=== PATIENT | female | born 1990 | race Two or more races ===

== ENCOUNTER 2017-05-09 23:17 | Observation (INO) | payer SELFPAY ==
[2017-05-09] MEDS ORDERED: IV RINGERS,LACTATED 1000ML 1,000 ML IV SCH (23:30)
[2017-05-09 23:38] LABS: BILIRUBIN,URINE NEGATIVE (NEG); GLUCOSE,URINE NEGATIVE (NEG); NITRITE,URINE NEGATIVE (NEG); PH,URINE 7.5; PROTEIN,URINE NEGATIVE (NEG-TRACE); UROBILINOGEN,URINE 0.2 mg/dL (0.2 mg/dL)
[2017-05-09 23:42] LABS: BACTERIA,URINE MODERATE /HPF (0-FEW); SQUAMOUS EPITHELIAL CELL,UR MANY /LPF; WBC,URINE 20-40 /HPF (0-4)
[2017-05-09 23:45] LABS: BARBITURATES NEG (NEG); BENZODIAZEPINES NEG (NEG); CANNABINOIDS NEG (NEG); COCAINE NEG (NEG); METHADONE NEG (NEG); OPIATES NEG (NEG); PHENCYCLIDINE NEG (NEG)
[2017-05-10] MEDS ORDERED: hydrOXYzine PAMOATE 25 MG CAPSULE PO ONE (00:15)
[2017-05-10 00:48] LABS: BASO % 0 % (0-3); EOS % 2 % (0-3); HEMATOCRIT 35.8 % (36.0-47.0); HEMOGLOBIN 12.9 g/dL (12.0-15.5); LYMPH # 1.9 x10^3/uL (1.0-4.8); LYMPH % 17 % (24-48); MEAN CORPUSCULAR HEMOGLOBIN 37 pg (25-35); MEAN CORPUSCULAR HGB CONC 36 g/dL (31-37); MEAN CORPUSCULAR VOLUME 101 fL (79-100); MONO % 10 % (0-9); NEUT % 70 % (31-73); PLATELET COUNT 167 x10^3/uL (140-400); RED BLOOD COUNT 3.53 x10^6/uL (3.50-5.40); RED CELL DISTRIBUTION WIDTH 12.3 % (11.5-14.5); WHITE BLOOD COUNT 10.8 x10^3/uL (4.0-11.0)
[2017-05-10 14:28] LABS: HIV ANTIBODY Non Reactive (Non Reactive)
[2017-05-11 04:20] LABS: RPR REFLEX Non Reactive (Non Reactive)
== END 2017-05-10 02:00 | disposition home or self-care (01) ==
LOC: 3 SO LND 23:17
DX: O62.9 Abnormality of forces of labor, unspecified (principal); O26.893 Other specified pregnancy related conditions, third trimester; M54.9 Dorsalgia, unspecified; O46.93 Antepartum hemorrhage, unspecified, third trimester; Z3A.39 39 weeks gestation of pregnancy
CPT/HCPCS: 36415; 80307; 81001; 85025; 86593; 86701; 86702; 86703; 86762; 86850; 86900; 86901; 87070; 87086; 87340; 87341; 87535; 96360; 96361; G0378; G0379; Q0177; J7120; G0479

== ENCOUNTER 2017-05-10 10:33 | Inpatient (IN) | payer SELFPAY ==
[~2017-05-10] VITALS: Ht 162.6 cm; Wt 74.4 kg
[2017-05-10] MEDS ORDERED: IV RINGERS,LACTATED 1000ML 1,000 ML IV SCH ×2 (11:03→11:18)
[2017-05-10] MEDS ORDERED: TERBUTALINE 1 MG/ML VIAL. SQ PRN (11:15)
[2017-05-10] MEDS ORDERED: fentaNYL PF VIAL 100 MCG/2 ML VIAL IV PRN (11:15)
[2017-05-10] MEDS ORDERED: LIDOCAINE 1% PF 30 ML VIAL. INJ PRN (11:15)
[2017-05-10] MEDS ORDERED: 0.9 % SODIUM CHLORIDE 10 ML DISP.SYRIN. IV PRN (11:15)
[2017-05-10] MEDS ORDERED: OXYTOCIN 30 UNIT/500 ML PREMIX 500 ML IV PRN (11:15)
[2017-05-10] MEDS ORDERED: ROPIVacaine 0.2% IN 0.9%NACL PF 40 MG/20 ML DISP.SYRIN. ONE (11:19)
[2017-05-10] MEDS ORDERED: ePHEDrine PF IN SALINE 50 MG/5 ML DISP.SYRIN IV ONE ×2 (11:19→11:30)
[2017-05-10] MEDS ORDERED: L&D EPIDURAL CASSETTE 100 ML EP ONE (11:19)
[2017-05-10 11:30] VITALS: BP 95/54
[2017-05-10] MEDS ORDERED: fentaNYL PF VIAL 100 MCG/2 ML VIAL EPI PRN (11:30)
[2017-05-10] MEDS ORDERED: L&D EPIDURAL CASSETTE 100 ML EP PRN (11:30)
[2017-05-10] MEDS ORDERED: ROPIVacaine 0.2% IN 0.9%NACL PF 40 MG/20 ML DISP.SYRIN. EPI PRN (11:30)
[2017-05-10] MEDS ORDERED: BUPIVACAINE MPF 0.25% 10 ML VIAL. EPI PRN (11:30)
[2017-05-10] MEDS ORDERED: ePHEDrine PF IN SALINE 50 MG/5 ML DISP.SYRIN IV PRN (11:30)
[2017-05-10] MEDS ORDERED: NALOXONE 0.4 MG/ML VIAL. IV PRN (11:30)
[2017-05-10] MEDS ORDERED: OXYTOCIN 30 UNIT/500 ML PREMIX 500 ML IV ONE (12:00)
--- NOTE | 2017-05-10 12:31 | HP ---
ADMIT DATE: 05/10/2017 REASON FOR VISIT: Labor. HISTORY OF PRESENT ILLNESS: This is a 26-year-old female, 2, para 1-0-0-1, estimated gestational age 39 and 4/7 weeks' gestation by an 18-week ultrasound with EDC of 05/13/2017. The patient had been seen in Labor and Delivery late last evening, was observed, had a category 1 tracing, demonstrated no cervical change at 2 cm. Contractions abated with IV fluids. She now re-presents with contractions every 4 minutes, 4-5 cm dilatation. heart tracing is category 1 with a baseline of 125. Tocometer confirms contractions approximately every 5 minutes. She has been admitted for active labor management. She denies any vaginal bleeding, leakage of fluid. Desires a labor epidural and she is status post placement by Anesthesia. The patient received her care at the [facility]. It was remarkable for late onset, a total of 7 visits with her last visit being 03/13/2017. Review of her labs that are on the records shows blood type is A, Rh positive, AB screen none, hepatitis B surface is negative, RPR nonreactive. Gonorrhea and chlamydia cultures negative, HIV negative, rubella immune, GBS status unknown. It has been performed last evening with results pending as well. Unable to locate a 1-hour glucose, however, the patient reports that it was within normal limits. PAST OBSTETRICAL HISTORY: Previous vaginal delivery, 6 pound 8 ounce female infant at 40 weeks gestation on 11/28/2016. She had a labor epidural with this delivery. She denied any problems with that delivery or problems with the care. PAST MEDICAL AND PAST SURGICAL HISTORY: Unremarkable. PAST GYNECOLOGIC HISTORY: She is current with her Pap smear. Denies any history of atypical Paps. Denies any history of cervical procedures. Denies any history of sexually transmitted diseases. SOCIAL HISTORY: . Denies tobacco or alcohol use during the course of . FAMILY HISTORY: No known defects on her side of the family or the father of the baby side of family. ALLERGIES: No known drug allergies. MEDICATIONS: vitamins. PHYSICAL EXAMINATION: VITAL SIGNS: Per nursing flow sheet. GENERAL: Alert and oriented, in no acute distress, comfortable with her labor epidural. LUNGS: Without wheeze, rhonchi or crackles. ABDOMEN: Gravid. Fundal height consistent with gestational age. Estimated weight by Mike maneuver is 7-1/2 pounds. heart tracing 125, category 1. Tocometer, uterine contractions q.5 minutes. PELVIS: Vaginal examination, normal female without lesion or ulceration. Cervix is 5 cm, 90% effaced. Amniotomy performed with the Amniohook with clear fluid noted. Cephalic presentation, 0 station. Pelvis appears adequate for trial of labor. EXTREMITIES: Nontender. IMPRESSION: Intrauterine 39 and 4/7 weeks' gestation, active labor. PLAN: The patient is comfortable through labor epidural. Consent signed on the chart for a trial of labor. We will place the patient on a normal labor curve and optimistic she will undergo a term assisted vaginal delivery. NORA ROBERTSON DO DR: JJ/ira JOB#: [id number] / [id number]
[2017-05-10] MEDS: IBUPROFEN 800 MG TABLET. PO PRN ×2 (16:30→22:54)
[2017-05-10 17:16] VITALS: BP 95/57
--- NOTE | 2017-05-10 19:48 | LDN ---
DATE OF DELIVERY: 05/10/2017 TIME: 1437. PREOPERATIVE DIAGNOSIS: Intrauterine at 39 and 4/7-weeks' gestation, limited care. POST DELIVERY DIAGNOSIS: Intrauterine at 39 and 4/7-weeks' gestation, limited care, nuchal cord x 1. SURGEON: Nora Melendez DO. PROCEDURE: Amniotomy, term assisted vaginal delivery, repair of a second-degree perineal laceration. OPERATIVE DESCRIPTION: The patient was status post amniotomy at 11:46 a.m. clear fluid. She was started on oxytocin, progressed to complete. She was comfortable through labor epidural. The patient was placed in the obstetrical stirrups. Quevedo catheter was removed by nursing staff. The patient was prepped and draped in usual sterile fashion for vaginal delivery. The head was delivered atraumatically in the direct occipital anterior position. Nuchal cord x 1 was noted was easily reduced. Light gentle downward pressure was applied to the head and the anterior and posterior shoulder delivered in the usual fashion without resistance as was the coming torso. Infant was held below the peritoneum. The oral and nasopharynx were bulb suctioned. He is noted to be a liveborn male infant. was then placed on the mother's abdomen. The cord was doubly clamped with Tanya clamps, transected with the Candelaria scissors. Cord blood was drawn. The uterus was delivered by gentle traction. Recinos presentation normal, appearance normal. Three-vessel cord noted. Oxytocin was infused. Uterus was firm to palpation. Bleeding was moderate. Inspection of the vaginal mucosa and peritoneum revealed a second-degree perineal laceration. This was repaired with 2-0 chromic in the usual fashion with excellent hemostasis and cosmesis obtained. All sponge, instrument, needle counts correct x 3 per nurse staff in attendance. The patient tolerated procedure well. ANESTHESIA: Epidural. ESTIMATED BLOOD LOSS: Less than 500 mL. COMPLICATIONS: None apparent. DISPOSITION: Mother stable in the LDR, infant to the full term nursery. Infant's weight assessed by nursing staff 3435 grams with Apgars assigned by nursing staff of 8 and 9. NORA MELENDEZ DO DR: JJ/ira JOB#: [id number] / [id number]
[2017-05-10 22:52] VITALS: BP 92/56
[2017-05-11 04:00] VITALS: BP 94/52
[2017-05-11] MEDS: IBUPROFEN 800 MG TABLET. PO PRN ×3 (08:27→23:30)
--- NOTE | 2017-05-11 09:43 | PN ---
DATE: 05/11/2017 TIME OF NOTE: 9:14 a.m. SUBJECTIVE: The patient is status post term-assisted vaginal delivery, male infant with a second-degree perineal laceration repaired in the usual fashion under labor epidural. She reports minimal to moderate lochia. She is both breast and bottle feeding. Pain well controlled with Motrin. Ambulating, voiding without any difficulties. PHYSICAL EXAMINATION: VITAL SIGNS: Afebrile. Vital signs were stable. GENERAL: Alert and oriented. ABDOMEN: Soft, fundus nontender . EXTREMITIES: Nontender. IMPRESSION: Status post term-assisted vaginal delivery. PLAN: We will go ahead and plan to dismiss the patient from an inpatient status this evening just before midnight, convert her to a border status for cost containment. She is stable obstetrically for discharge; however, GBS culture results are unknown. She received care through the [facility] and will follow them in 6 weeks, sooner should she have problems or concerns. She is uncertain what she wants to do about control. She can follow up with us at her visit. NORA ROBERTSON DO DR: JJ/ira JOB#: [id number] / [id number]
[2017-05-11] MEDS ORDERED: DIPHTH,PERTUSS(ACELL),TET TOX 0.5 ML DISP.SYRIN. VAX IM ONE (09:45)
[2017-05-11 11:45] VITALS: BP 101/58
[2017-05-11 20:00] VITALS: BP 108/68
[2017-05-22] MEDS ORDERED: L&D EPIDURAL CASSETTE 100 ML EP PRN (12:00)
== END 2017-05-11 23:58 | disposition home or self-care (01) | DRG 775 ==
LOC: 3 SO LND 10:33 → OBSVTOIN 11:06 → 3 NORTH 17:12
PROC: 10E0XZZ Delivery of Products of Conception, External Approach (ICD-10-PCS; principal; 2017-05-10)
PROC: 0KQM0ZZ Repair Perineum Muscle, Open Approach (ICD-10-PCS; 2017-05-10)
PROC: 10907ZC Drainage of Amniotic Fluid, Therapeutic from Products of Conception, Via Natural or Artificial Opening (ICD-10-PCS; 2017-05-10)
PROC: 3E0S3BZ Introduction of Anesthetic Agent into Epidural Space, Percutaneous Approach (ICD-10-PCS; 2017-05-10)
PROC: 00HU33Z Insertion of Infusion Device into Spinal Canal, Percutaneous Approach (ICD-10-PCS; 2017-05-10)
DX: O69.81X0 Labor and delivery complicated by cord around neck, without compression, not applicable or unspecified (principal); O70.1 Second degree perineal laceration during delivery; Z37.0 Single live birth; Z3A.39 39 weeks gestation of pregnancy
CPT/HCPCS: 36415; 86850; 86900; 86901; 90715; G0379; J2590; J2795; J7120

== ENCOUNTER 2017-07-31 09:49 | Emergency (ER) | payer MEDICAID ==
[2017-07-31] MEDS: IBUPROFEN 800 MG TABLET. PO (11:40)
[2017-07-31] MEDS: ACETAMINOPHEN 325 MG TABLET. PO (11:40)
[2017-07-31 11:41] LABS: NEGATIVE OBC STREP NEG; POSITIVE OBC STREP POS
[2017-07-31 11:58] LABS: INFLUENZA A PATIENT POSITIVE (NEGATIVE); INFLUENZA B PATIENT NEGATIVE (NEGATIVE); OBC FLU VALID
== END 2017-07-31 12:21 | disposition home or self-care (01) ==
LOC: ER 09:49
DX: J09.X2 Influenza due to identified novel influenza A virus with other respiratory manifestations (principal)
CPT/HCPCS: 87070; 87804; 87804-59; 87880; 99284